=== PATIENT | female | born 1945 | race Two or more races ===

== ENCOUNTER 2020-08-27 14:04 | Emergency (ER) | payer MEDICARE ==
[~2020-08-27] VITALS: Ht 154.9 cm; Wt 40.0 kg
--- NOTE | 2020-08-27 15:07 | NUR ---
PATIENT CHIEF C/O CONSTIPATION. PER PATIENT LAST BM WAS 3 DAYS AGO, BM WAS NORMAL AT THAT TIME. PATIENT C/O ABD PAIN, DENIES N/V/D, NO FEVER. ABD IS FIRM, NORMOACTIVE BOWEL SOUNDS, PATIENT REPORTS PASSING GAS. NADN, VSS, FAMILY AT BEDSIDE, CALL LIGHT WITHIN REACH.
[2020-08-27] MEDS ORDERED: SODIUM CHLORIDE FLUSH 10ML SYR IVF ONE (15:30)
[2020-08-27] MEDS ORDERED: HYDROmorphone 1 MG/ML, 1ML INJ IV ONE (15:30)
[2020-08-27] MEDS ORDERED: HYDROmorphone 1 MG/ML, 1ML INJ ONE (15:40)
[2020-08-27 15:43] LABS: BASOPHILS % (AUTO) 0 % (0-1); EOSINOPHILS % (AUTO) 0 % (1-7); LYMPHOCYTES % (AUTO) 7 % (22-44); MEAN CORPUSCULAR HEMOGLOBIN 32.3 pg (27.0-34.8); MEAN CORPUSCULAR HGB CONC 33.9 g/dL (32.4-35.8); MEAN PLATELET VOLUME 7.1 fL (7.4-10.4); MONOCYTES % (AUTO) 3 % (2-9); NEUTROPHILS % (AUTO) 90 % (42-75); PLATELET COUNT 316 x10^3/uL (130-400); RED CELL DISTRIBUTION WIDTH 14.5 % (9.6-15.2)
[2020-08-27 15:52] LABS: ALANINE AMINOTRANSFERASE 23 U/L (12-78); ALBUMIN 3.2 g/dL (3.4-5.0); ANION GAP 6 mmol/L (5-15); CALCIUM 8.8 mg/dL (8.5-10.1); CHLORIDE 104 mmol/L (98-107); CREATININE 0.52 mg/dL (0.55-1.02)
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
[2020-08-27 15:57] LABS: ALKALINE PHOSPHATASE 111 U/L (45-117); BILIRUBIN,TOTAL 0.4 mg/dL (0.2-1.0); TOTAL PROTEIN 7.3 g/dL (6.4-8.2); TROPONIN I < 0.015 ng/mL (0.000-0.045)
[2020-08-27 16:10] LABS: MD SCAN
--- NOTE | 2020-08-27 16:16 | NUR ---
PATIENT WHEELED TO BATHROOM TO LEAVE URINE SAMPLE BY FAMILY.
--- NOTE | 2020-08-27 16:40 | NUR ---
URINE COLLECTED AND SENT TO LAB, PATIENT ASSISTED BACK TO [facility] AND CONNECTED TO MONITOR, NADN, FAMILY AT BEDSIDE, CALL LIGHT WITHIN REACH.
[2020-08-27 16:55] LABS: MICROSCOPIC NOT IND
--- NOTE | 2020-08-27 17:12 | NUR ---
ERMD AT BEDSIDE TO DISCUSS POC.
[2020-08-27 17:23] VITALS: BP 117/66
--- NOTE | 2020-08-27 17:40 | NUR ---
IV removed with tip intact. Patient's son given discharge instructions and prescription and they have confirmed that they understand the instructions. Patient stable and wheeled out from ED with son and to private vehicle.
== END 2020-08-27 17:41 | disposition home or self-care (01) ==
LOC: ED 17:35
DX: R10.84 Generalized abdominal pain (principal); K59.00 Constipation, unspecified; R94.31 Abnormal electrocardiogram [ECG] [EKG]; M54.6 Pain in thoracic spine; G89.29 Other chronic pain
CPT/HCPCS: 36415; 74022; 80053; 81003; 83735; 84484; 85025; 93005; 96374; 99285; J1170; 51701; P9612

== ENCOUNTER 2020-11-03 19:04 | Observation (INO) | payer MEDICARE ==
[~2020-11-03] VITALS: Ht 149.9 cm; Wt 38.3 kg
--- NOTE | 2020-11-03 20:25 | NUR ---
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
[2020-11-03 21:43] LABS: BASOPHILS % (AUTO) 1 % (0-1); EOSINOPHILS % (AUTO) 0 % (1-7); LYMPHOCYTES % (AUTO) 21 % (22-44); MEAN CORPUSCULAR HEMOGLOBIN 33.1 pg (27.0-34.8); MEAN CORPUSCULAR HGB CONC 33.7 g/dL (32.4-35.8); MEAN PLATELET VOLUME 6.4 fL (7.4-10.4); MONOCYTES % (AUTO) 9 % (2-9); NEUTROPHILS % (AUTO) 70 % (42-75); PLATELET COUNT 359 x10^3/uL (130-400); RED BLOOD COUNT 3.54 x10^6/uL (3.82-5.3); RED CELL DISTRIBUTION WIDTH 15.9 % (9.6-15.2)
[2020-11-03 21:53] LABS: ALBUMIN 2.6 g/dL (3.4-5.0); ANION GAP 12 mmol/L (5-15); CALCIUM 8.2 mg/dL (8.5-10.1); CHLORIDE 96 mmol/L (98-107)
[2020-11-03 21:57] LABS: ALANINE AMINOTRANSFERASE 15 U/L (12-78); ALKALINE PHOSPHATASE 160 U/L (45-117); BILIRUBIN,TOTAL 0.5 mg/dL (0.2-1.0); CREATININE 0.48 mg/dL (0.55-1.02); TOTAL PROTEIN 6.3 g/dL (6.4-8.2)
[2020-11-03] MEDS: DEXTROSE 5% 250 ML IV SCH ×2 (22:30→23:30)
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
--- NOTE | 2020-11-03 23:58 | NUR ---
PT STANDS & PIVIOTS C ASSISTANCE 2 PERSON/FAMILY TO BSC.
[2020-11-04] MEDS: DEXTROSE 5% 250 ML IV SCH (00:30)
--- NOTE | 2020-11-04 01:11 | NUR ---
HOSPITALIST AT BS. PT FULL CODE PER PT/FAMILY. READY FOR TRANSPORT/REPORT CALLED.
[2020-11-04] MEDS ORDERED: ONDANSETRON 2MG/ML, 2ML IVPush PRN (01:30)
[2020-11-04] MEDS ORDERED: TEMAZEPAM 15 MG CAPSULE PO PRN (01:30)
[2020-11-04] MEDS ORDERED: LACTATED RINGERS 1,000 ML IV SCH (01:30)
[2020-11-04] MEDS ORDERED: ENOXAPARIN 40 MG/0.4 ML SQ SCH (01:30)
[2020-11-04] MEDS ORDERED: ENALAPRILAT 1.25 MG/ML, 2ML IVPush PRN (01:30)
[2020-11-04] MEDS ORDERED: GUAIFENESIN/DM 200-20MG, 10ML UDC PO PRN (01:30)
[2020-11-04] MEDS ORDERED: CYCLOBENZAPRINE 10 MG TABLET PO PRN (01:30)
[2020-11-04] MEDS ORDERED: IBUPROFEN 600 MG TABLET PO PRN (01:30)
[2020-11-04] MEDS ORDERED: morphine SULFATE 10 MG/ML, 1ML IVPush PRN (01:30)
[2020-11-04 02:07] VITALS: BP 103/53
[2020-11-04] MEDS ORDERED: ACET650S21 PO (02:33)
[2020-11-04] MEDS ORDERED: PRED5TAB PO (02:33)
[2020-11-04 04:39] LABS: MICROSCOPIC NOT IND
[2020-11-04 07:05] VITALS: BP 105/54
[2020-11-04] MEDS ORDERED: FAMOTIDINE 20 MG TABLET PO SCH (09:00)
[2020-11-04] MEDS ORDERED: SENNA/DOCUSATE TABLET PO SCH (09:00)
[2020-11-04] MEDS: ACETAMINOPHEN 325 MG TABLET PO PRN ×2 (09:16→15:50)
[2020-11-04 14:15] VITALS: BP 106/64
[2020-11-04] MEDS ORDERED: ENOXAPARIN 30 MG/0.3 ML SQ SCH (15:00)
[2020-11-04] MEDS ORDERED: CYCL10TA2 PO (15:27)
[2020-11-04] MEDS ORDERED: TRAM50TA2 PO (15:27)
[2020-11-05] MEDS ORDERED: FAMOTIDINE 20 MG TABLET PO SCH (09:00)
== END 2020-11-04 16:48 | disposition home or self-care (01) ==
LOC: ED 21:49 → INTOOBSV 23:41 → EDIP 23:41 → 4NE 11-04 01:54 → UNDODISIN 11-04 16:48
PROVIDERS: ADMIT Internal Medicine; ATTEND Hospitalist
DX: M06.9 Rheumatoid arthritis, unspecified (principal); M81.0 Age-related osteoporosis without current pathological fracture; L89.159 Pressure ulcer of sacral region, unspecified stage; R34 Anuria and oliguria; E43 Unspecified severe protein-calorie malnutrition; E87.1 Hypo-osmolality and hyponatremia; E87.8 Other disorders of electrolyte and fluid balance, not elsewhere classified; E16.2 Hypoglycemia, unspecified; E86.0 Dehydration; R62.7 Adult failure to thrive; Z79.899 Other long term (current) drug therapy
CPT/HCPCS: 36415; 74176; 80053; 81003; 84443; 85025; 93005; 93970; 96360; 96361; 97162; 97165; 99285; G0378; J7060; J7120

== ENCOUNTER 2020-12-25 23:24 | Emergency (ER) | payer MEDICARE ==
[~2020-12-25] VITALS: Ht 152.4 cm; Wt 45.0 kg
[~2020-12-25 23:24] MED LIST: ACET650S21 PO; CYCL10TA2 PO; PRED5TAB PO; TRAM50TA2 PO
--- NOTE | 2020-12-25 23:50 | NUR ---
PT BIBA FROM HOME DUE TO NO BM X5DAYS AND INCREASING ABDOMINAL PAIN, PT ON HOSPICE. pt moaning while resting on gurney, placed on spo2/bp/ecg monitoring, vss at this time. granddaughter at bs, bed in lowest, rails engaged, call light on lap, wctm. law erp at bs for eval and poc.
[2020-12-26] MEDS ORDERED: METHYLNALTREXONE 12 MG/0.6 ML SYR SQ ONE
[2020-12-26] MEDS ORDERED: HYDROmorphone 1 MG/ML, 1ML INJ IVPush PRN
[2020-12-26] MEDS ORDERED: SODIUM CHLORIDE FLUSH 10ML SYR IVF ONE
[2020-12-26] MEDS ORDERED: HYDROmorphone 2 MG/ML, 1ML ONE (00:19)
[2020-12-26] MEDS ORDERED: MIDAZOLAM 1 MG/ML, 5ML IVPush ONE (00:30)
[2020-12-26] MEDS ORDERED: MIDAZOLAM 1 MG/ML, 2ML ONE (00:38)
[2020-12-26] MEDS ORDERED: MIDAZOLAM 1 MG/ML, 2ML IVPush PRN (01:00)
--- NOTE | 2020-12-26 01:08 | NUR ---
pt tolerated digital disimpaction well at this time. nad, appears comfortable, resting on gurney, granddaughter at bs, even and unlabored respirations, eyes closed, co2 monitoring in place, pt vss, wctm.
[2020-12-26] MEDS ORDERED: SODIUM CHLORIDE 0.9%, 500ML IVBOLUS ONE (01:30)
--- NOTE | 2020-12-26 02:29 | NUR ---
Patient is resting comfortably in bed. Bed in lowest, rails engaged, call light on lap. FAMILY AT BS, NAD, Vital Signs within normal limits. WCTM.
[2020-12-26 02:30] VITALS: BP 94/55
--- NOTE | 2020-12-26 03:45 | NUR ---
Patient/Caregivers given discharge instructions and they have confirmed that they understand the instructions. Patient transferred to wheelchair for dc which is pt baseline. pt NAD, all questions answered appropriately, denies additional needs at this time. No personal belongings left in room after discharge.
[2020-12-26] MEDS ORDERED: ONDANSETRON ODT 4 MG ONE (03:46)
== END 2020-12-26 04:07 | disposition home or self-care (01) ==
LOC: ED 12-26 02:55
DX: K56.41 Fecal impaction (principal); Z90.89 Acquired absence of other organs
CPT/HCPCS: 93005; 96374; 96375; 99284; J1170; J2250; J7040